=== PATIENT | female | born 1990 | race Caucasian/White ===

== ENCOUNTER 2018-03-11 23:15 | Inpatient (IN) | payer OTHER ==
[2018-03-12] MEDS ORDERED: OXYTOCIN DRIP 30 UNITS in APPROPRIATE DILUENT 1 EA IV (00:30)
[2018-03-12] MEDS: LACTATED RINGER'S 1000 ML IV (00:37)
[2018-03-12 00:47] LABS: HEMATOCRIT 38.9 % (36.0-47.0); HEMOGLOBIN 13.2 g/dl (12.0-15.5); MEAN CORPUSCULAR HEMOGLOBIN 28.8 pg (27.0-33.0); MEAN CORPUSCULAR HGB CONC 33.9 g/dl (32.0-36.5); MEAN CORPUSCULAR VOLUME 84.7 fl (80.0-96.0); PLATELET COUNT, AUTOMATED 268 10^3/uL (150-450); RED BLOOD COUNT 4.59 10^6/uL (4.00-5.40); RED CELL DISTRIBUTION WIDTH 12.8 % (11.5-14.5); WHITE BLOOD COUNT 15.1 10^3/uL (4.0-10.0)
[2018-03-12] MEDS: ONDANSETRON 4MG/2ML VIAL (J2405) IV ×2 (01:02→05:00)
[2018-03-12] MEDS: AMPICILLIN SOD 1 GM in APPROPRIATE DILUENT 10 ML IV ×3 (01:13→09:00)
[2018-03-12] MEDS: LR 1,000 ML IV ×4 (01:55→13:21)
[2018-03-12] MEDS ORDERED: FENTANYL 2MCG/ML ROPIVACAINE 0.2% IN 0.9% NACL 200ML IVBAG As Ordered (04:03)
[2018-03-12] MEDS ORDERED: EPIDURAL COMMENT XX (05:45)
[2018-03-12] MEDS ORDERED: ONDANSETRON 4MG/2ML VIAL (J2405) IV ×4 (05:45→12:15)
[2018-03-12] MEDS ORDERED: diphenhydrAMINE INJ 50MG/ML VIAL (J1200) IV (05:45)
[2018-03-12] MEDS ORDERED: NALOXONE INJ 0.4 MG/1 ML VIAL (J2310) IV ×3 (05:45→11:00)
[2018-03-12] MEDS: FENTANYL/ROPIVACAINE/NACL BAG 200 ML EPIDURAL (05:45)
[2018-03-12] MEDS ORDERED: REFRIGERATOR IV KEYS XX (05:45)
[2018-03-12] MEDS ORDERED: ePHEDrine SULFATE 25 MG/5 ML(5MG/ML) SYRINGE IV (05:45)
[2018-03-12] MEDS ORDERED: LACTATED RINGER'S 1000 ML IV (05:45)
[2018-03-12] MEDS ORDERED: EPIDURAL/PCA KEYS XX (05:45)
[2018-03-12] MEDS: DOCUSATE SODIUM 100 MG CAP PO ×2 (09:00→22:37)
[2018-03-12] MEDS: PRENATAL VITAMINS CHEWABLE TABLET PO (09:00)
[2018-03-12] MEDS: BICITRA 30ML SOLN UDC PO (10:00)
[2018-03-12] MEDS ORDERED: ceFAZolin 2 GM/D5W 50 ML IV BAG (J0690 PER 500MG) As Ordered (10:03)
[2018-03-12] MEDS ORDERED: BICITRA 30ML SOLN UDC As Ordered (10:03)
[2018-03-12] MEDS ORDERED: OXYTOCIN INJ 10 UNITS/ML VIAL (J2590) As Ordered ×4 (10:16→10:27)
[2018-03-12] MEDS ORDERED: CHLOROPROCAINE PRES. FREE 3% INJ 20 ML VIAL (J2400) As Ordered ×3 (10:16)
[2018-03-12] MEDS ORDERED: SODIUM BICARBONATE 8.4% INJ 50 ML SYRINGE As Ordered (10:17)
[2018-03-12] MEDS ORDERED: ONDANSETRON 4MG/2ML VIAL (J2405) As Ordered (10:20)
[2018-03-12] MEDS ORDERED: KETOROLAC 60 MG/2 ML VIAL (J1885) As Ordered (10:20)
[2018-03-12] MEDS ORDERED: MORPHINE PRES-FREE INJ 10 MG/10 ML VIAL (J2274) As Ordered (10:22)
[2018-03-12 10:45] LABS: CORD GAS ABE A -14.8; CORD GAS HCO3 A 17.4 MEQ/L; CORD GAS O2 SAT A 43.6 %; CORD GAS PCO2 A 71.2 mmHg; CORD GAS PH A 7.007 UNITS; CORD GAS PO2 A 25.7 mmHg; CORD GAS SBC A 12.4 MEQ/L; CORD GAS TCO2 A 19.6 MEQ/L
[2018-03-12 10:47] LABS: CORD GAS ABE V -15.2; CORD GAS HCO3 V 15.7 MEQ/L; CORD GAS O2 SAT V 58.5 %; CORD GAS PCO2 V 57.1 mmHg; CORD GAS PH V 7.056 UNITS; CORD GAS PO2 V 32.2 mmHg; CORD GAS SBC V 12.5 MEQ/L; CORD GAS TCO2 V 17.4 MEQ/L
[2018-03-12] MEDS ORDERED: METOCLOPRAMIDE INJ 10MG/2ML VIAL (J2765) IV ×2 (11:00→12:15)
[2018-03-12] MEDS ORDERED: fentaNYL 100 MCG/2 ML INJECTION (J3010) As Ordered ×2 (11:52→12:20)
[2018-03-12] MEDS: AZITHROMYCIN INJ 500 MG, VIAL MATE ADAPTER 1 EACH in D5W 250 ML IV (12:00)
[2018-03-12] MEDS ORDERED: PROMETHAZINE 25 MG TAB PO (12:00)
[2018-03-12] MEDS ORDERED: fentaNYL 100 MCG/2 ML INJECTION (J3010) IV (12:15)
[2018-03-12] MEDS: AMPICILLIN SOD/SULBACTAM SOD 3 GM in D5W MINI-BAG PLUS 100 ML IV ×2 (13:47→19:54)
[2018-03-12] MEDS: KETOROLAC 30 MG/ML VIAL (J1885) IV ×2 (16:27→22:38)
[2018-03-13] MEDS: AMPICILLIN SOD/SULBACTAM SOD 3 GM in D5W MINI-BAG PLUS 100 ML IV ×3 (01:42→13:12)
[2018-03-13] MEDS: KETOROLAC 30 MG/ML VIAL (J1885) IV (04:35)
[2018-03-13] MEDS: NALBUPHINE HCL 10 MG/ML AMP (J2300) IV (04:51)
[2018-03-13 06:55] LABS: HEMATOCRIT 29.7 % (36.0-47.0); MEAN CORPUSCULAR HEMOGLOBIN 29.6 pg (27.0-33.0); MEAN CORPUSCULAR HGB CONC 34.3 g/dl (32.0-36.5); MEAN CORPUSCULAR VOLUME 86.1 fl (80.0-96.0); PLATELET COUNT, AUTOMATED 189 10^3/uL (150-450); RED BLOOD COUNT 3.45 10^6/uL (4.00-5.40); RED CELL DISTRIBUTION WIDTH 13.5 % (11.5-14.5); WHITE BLOOD COUNT 15.7 10^3/uL (4.0-10.0)
[2018-03-13 07:03] LABS: HEMOGLOBIN 10.2 g/dl (12.0-15.5)
[2018-03-13] MEDS: PERCOCET 5MG/325MG TAB PO ×2 (08:21→18:43)
[2018-03-13] MEDS: PRENATAL VITAMINS CHEWABLE TABLET PO (08:21)
[2018-03-13] MEDS: DOCUSATE SODIUM 100 MG CAP PO ×2 (08:21→20:01)
[2018-03-13] MEDS: RHOGAM 300 MCG (1500 IU) INJ (J2790) IM (10:36)
[2018-03-13] MEDS: IBUPROFEN 800 MG TAB PO ×2 (13:12→20:01)
[2018-03-14] MEDS: IBUPROFEN 800 MG TAB PO ×3 (05:40→21:29)
[2018-03-14] MEDS: PRENATAL VITAMINS CHEWABLE TABLET PO (07:40)
[2018-03-14] MEDS: DOCUSATE SODIUM 100 MG CAP PO ×2 (07:41→21:29)
[2018-03-14] MEDS: PERCOCET 5MG/325MG TAB PO ×3 (07:41→21:30)
[2018-03-14] MEDS: ADACEL/BOOSTRIX VACCINE (DIPHTH/PERTUSS/ACELL/TETANUS)0.5ML SYR (90715) IM (07:42)
[2018-03-15] MEDS: IBUPROFEN 800 MG TAB PO (04:06)
[2018-03-15] MEDS: DOCUSATE SODIUM 100 MG CAP PO (07:51)
[2018-03-15] MEDS: PRENATAL VITAMINS CHEWABLE TABLET PO (07:51)
[2018-03-15] MEDS: MEASLES,MUMPS,RUBELLA VACCINE INJ (MMR-II) (90707) SC (10:09)
== END 2018-03-15 10:15 | disposition home or self-care (01) | DRG 540 ==
LOC: M LDI 23:15 → M OBS 03-12 13:14
PROVIDERS: Obstetrics & Gynecology
PROC: 10D00Z1 Extraction of Products of Conception, Low, Open Approach (ICD-10-PCS; principal; 2018-03-11 10:16)
DX: O42.013 Preterm premature rupture of membranes, onset of labor within 24 hours of rupture, third trimester (principal); O60.13X0 Preterm labor second trimester with preterm delivery third trimester, not applicable or unspecified; O64.0XX0 Obstructed labor due to incomplete rotation of fetal head, not applicable or unspecified; Z37.0 Single live birth; Z3A.35 35 weeks gestation of pregnancy; O76 Abnormality in fetal heart rate and rhythm complicating labor and delivery; O66.5 Attempted application of vacuum extractor and forceps